=== PATIENT | female | born 1940 | race Caucasian/White ===

== ENCOUNTER 2024-09-22 09:48 | Outpatient (CLI) | payer MEDICARE, MEDICAID ==
--- NOTE | 2024-09-22 11:04 | RADIOLOGY REPORT ---
INDICATION: HX KIDNEY STONES, RECURRENT UTI TECHNIQUE: Multiple real-time sonographic images of the kidneys and bladder were obtained. COMPARISON: None FINDINGS: RIGHT KIDNEY: Measures 11 cm. Normal echogenicity. Mildly dilated renal pelvis. Renal stone measurin g 2.3 cm. Cyst measuring 2.6 cm. Mild hydronephrosis. LEFT KIDNEY: Measures 10.5 cm. Normal in echogenicity. No mass. No urinary stones. No hydronephrosi s. Exophytic cysts measuring 4.7 cm. BLADDER: Postvoid residual of 122 ML. IMPRESSION: 1. Mild hydronephrosis of the right kidney. 2.3 cm renal stone within the right kidney. 2. Urinary retention with postvoid volume of 122 mL.
== END 2024-09-22 23:59 | disposition home or self-care (01) ==
LOC: US 09:48
PROVIDERS: ATTEND Family Medicine
DX: N28.1 Cyst of kidney, acquired (principal); N13.2 Hydronephrosis with renal and ureteral calculous obstruction; N28.89 Other specified disorders of kidney and ureter; R33.9 Retention of urine, unspecified; Z87.442 Personal history of urinary calculi
CPT/HCPCS: 76770

== ENCOUNTER 2024-11-13 16:23 | Inpatient (IN) | payer MEDICARE, MEDICAID ==
[~2024-11-13] VITALS: Ht 152.4 cm; Wt 50.0 kg
[~2024-11-13 16:23] MED LIST: FAMO40TA58 PO; MELA3TAB39 PO; PRED10DR7
[2024-11-13 17:15] LABS: LEUKOCYTE ESTERASE ,URINE SMALL (Neg); NITRITES, URINE NEGATIVE (Neg); OCCULT BLOOD,URINE MODERATE (Neg)
[2024-11-13 17:24] LABS: UA COLLECTION TYPE CLN CATCH MIDSTREAM
[2024-11-13 17:25] LABS: MUCUS STRANDS NONE SEEN /LPF (Neg); SQUAMOUS EPITHELIAL CELL,UR NONE SEEN /LPF (FEW)
--- NOTE | 2024-11-13 17:31 | Physician Documentation ---
History of Present Illness ~ Chief Complaint: Sore Throat Stated Complaint: THROAT PAIN Time Seen by MD: 16:58 HPI The patient is an 84-year-old female accompanied by her daughter that presents to the emergency department today for evaluation of sore throat x2 days. Lorie reece's daughter reports that the patient was just discharged from an inpatient admission 2 days ago last night was her 1st night home. Patient's daughter reports that the patient was up pacing the halls most of the night complaining complaining that her throat hurts, confused statements, and that she did not think there was any need to get treatment for her sore throat and that she did not want to continue on". Patient's daughter reports that her mother said the same thing in the lobby while waiting to be seen today. Patient's daughter feels like her mother may have early onset dementia and is concerned about her mental state in addition to her sore throat at this time. No fevers nausea vomiting or diarrhea reported at this time. Medication Reconciliation Allergies: Coded Allergies: hydrocodone (Verified Allergy, Unknown, 10/27/24) Scheduled Famotidine (Famotidine), 1 TAB PO DAILY, (Reported) Melatonin (Melatonin), 6 MG PO HS Prednisolone Sod Phosphate (Prednisolone Sodium Phosphate), 1 DROP DAILY, (Reported) Past Medical History Patient History: Patient reports no known family medical history. Review of Systems ROS As stated above in the HPI, otherwise all systems are reviewed and negative. Physical Exam Vital Signs: Temperature: 98.3, Source: Oral, Heart Rate: 87, Respiratory Rate: 16, BP: 168/84, Pulse Oximetry: 96, Weight: 50.050 Progress Results/Orders Results/Orders Orders - BARBRA COTTRELL Cult Throat + R/O Beta Strep (11/13/24 17:56) Cbc/Diff (11/13/24 18:38) Completed Orders - BARBRA COTTRELL CMP (11/13/24 17:26) Strep A Rapid (11/13/24 17:26) Vital Signs 11/13/24 16:29 Temp 98.3 Pulse 87 Resp 16 B/P (MAP) 168/84 Pulse Ox 96 Laboratory Tests Test 11/13/24 16:55 11/13/24 17:35 11/13/24 17:36 Urine Specimen Description Cln catch midstream Urine Color Yellow Urine Clarity Clear Urine pH 6.0 Urine Specific [place] <=1.005 Urine Protein Negative Urine Glucose (UA) Negative Urine Ketones Negative Urine Occult Blood Moderate H Urine Nitrite Negative Urine Bilirubin Negative Urine Urobilinogen 0.2 Urine Leukocyte Esterase Small H Urine RBC 0-2 Urine WBC 5-10 H Urine Squamous Epithelial Cells None seen Urine Bacteria None seen Urine Mucus None seen Urine Culture Indicated Indicated Volume Urine Centrifuged 10 ml Urine Comment Group A Streptococcus Rapid Negative Sodium Level 140 Potassium Level 4.1 Chloride Level 107 Carbon Dioxide Level 26.5 Anion Gap 7 L Blood Urea Nitrogen 15 Creatinine 0.57 Estimated GFR/1.73 m2 > 90 BUN/Creatinine Ratio 26.3 H Glucose Level 95 Calcium Level 9.6 Total Bilirubin 0.5 Aspartate Amino Transf (AST/SGOT) 14 Alanine Aminotransferase (ALT/SGPT) 20 Alkaline Phosphatase 116 Total Protein 6.6 Albumin 3.4 Globulin 3.2 Albumin/Globulin Ratio 1.1 Chemistry Comments Microbiology Date/Time Source Procedure Growth Status 11/13/24 17:25 Urine Clean Catch Midstream Urine Culture - Preliminary Culture received. Resulted Medical Decision Making Findings This patient presents with symptoms consistent with acute uncomplicated cystitis. No systemic symptoms. Not septic. Well appearing. Low suspicion for ac seb pyelonephritis given lack of fever, CVAT, or systemic features. Low suspicion for kidney stone or infected stone. Patient has had persistent UTIs over the last several months despite treatment. Patient has increased confusion with each UTI. We will consult hospitalist and consider admission for metabolic encephalopathy and further evaluation of persistent UTIs. Throat Diff Dx: Considerations: Include: AIDS, Epiglottitis, Esophageal candidiasis, Hand foot mouth disease, Herpangina, Herpetic stomatitis, Herpes simplex, Infection mononucleosis, Immunodeficiency, Patrice's angina, Peritonsillar abscess, Peritonsillar cellulitis, Pharyngitis-diphtheria, Pharyngitis-strepococcal, Pharyngitis-viral, Thrush, URI, Other Departure Disposition: 30 STILL A PATIENT Admitted to Inpatient Unit: to hospitalist Admission Level of Care: Med/Surg Impression: Primary Impression: Irritation of pharynx Additional Impressions: Acute urinary tract infection Urinary tract infection Confused Insomnia Additional Instructions: This patient presents with symptoms consistent with acute uncomplicated cystitis. No systemic symptoms. Not septic. Well appearing. Low suspicion for acute pyelonephritis given lack of fever, CVAT, or systemic features. Low suspicion for kidney stone or infected stone. Patient has had persistent UTIs over the last several months despite treatment. Patient has increased confusion with each UTI. We will consult hospitalist and consider admission for metabolic encephalopathy and further evaluation of persistent UTIs. Referrals: NO PRIMARY CARE PROVIDER (PCP) Education Educated: Patient Educated regarding: diagnosis, treatment, need for follow up BARBRA COTTRELL Nov 13, 2024 17:31
[2024-11-13 17:56] LABS: STREP A SCREEN NEGATIVE (Neg)
[2024-11-13 18:04] LABS: CREATININE 0.57 MG/DL (0.40-0.90); TOTAL CARBON DIOXIDE 26.5 MMOL/L (24-32); eCRCL 52 ML/MIN; eGFR > 90 ML/MIN
[2024-11-13 19:00] LABS: MEAN PLATELET VOLUME 7.8 FL (7.4-10.4); RED CELL DISTRIBUTION WIDTH 15.0 % (11.5-14.5)
[2024-11-13] MEDS ORDERED: CefTRIAXone 250MG inj IV ONE (19:45)
[2024-11-13] MEDS: normal saline 1000ml 1,000 ML IV SCH (19:50)
[2024-11-13] MEDS ORDERED: HYDROcodone/acetaminophen 5mg/325mg tablet PO PRN (19:50)
[2024-11-13] MEDS ORDERED: potassium Cl 20 mEq SR tablet PO PRN ×2 (19:50)
[2024-11-13] MEDS ORDERED: magnesium Cl slow-release 64mg tablet PO PRN (19:50)
[2024-11-13] MEDS ORDERED: magnesium sulf-water 4G/100mL 100 ML IV PRN (19:50)
[2024-11-13] MEDS ORDERED: ondansetron/PF 4mg/2ml inj IV PRN (19:50)
[2024-11-13] MEDS ORDERED: HYDROcodone/acetaminophen 10/325mg tab PO PRN (19:50)
[2024-11-13] MEDS ORDERED: potassium Cl 40MEQ/1/2NS 520ml 520 ML IV PRN (19:50)
[2024-11-13] MEDS ORDERED: mag hydrox/Alum hydrox/simeth 30ml oral suspension PO PRN (19:50)
[2024-11-13] MEDS ORDERED: magnesium sulf-water 2g/50mL 50 ML IV PRN (19:50)
[2024-11-13] MEDS ORDERED: CefTRIAXone 1000mg IM Kit (w/lidocaine diluent) IM ONE (19:50)
[2024-11-13] MEDS: docusate sod 100mg capsule PO SCH (20:00)
[2024-11-13] MEDS: K and/or MAG REPLACEMENT MC SCH (20:00)
[2024-11-13] MEDS: normal saline 1000ml 1,000 ML IV ONE (20:32)
--- NOTE | 2024-11-13 20:33 | HISTORY AND PHYSICAL-Residence ---
History & Physical Providers to CC Resident Creating Document: KIRSTIE MURILLO, SONIYA ~ History of Present Illness Reason for Admit\\Complaint: UTI, metabolic encephalopathy History of Present Illness This is an 84-year-old female with past medical history of recurrent UTI and dementia since two years, corneal transplant, uterine cancer, bilateral total knee replacement, left shoulder replacement was brought to the ER by her daughter in view of increasing confusion and disorientation. The patient complains about dry cough, irritation in the throat since two days. No complains of fever, burning micturition, increased urgency or frequency, abdominal pain, back pain. She was here two weeks ago for UTI and was treated with ceftriaxone 1 g IV for 4 days and was discharged to go to a rehab. She was discharged from the rehab to go home two days ago. When I spoke to her she is oriented to time place and person, she seems fearful of being left alone in the room. Her daughter mentioned that her mother stays awake throughout the night, sometimes talks about things which are not there are not happening currently. Allergies: Coded Allergies: hydrocodone (Verified Adverse Reaction, Unknown, NAUSEA, 11/13/24) Home Medications Home Medications Active Melatonin 3 Mg Tablet 6 Mg PO HS 30 Days Reported Prednisolone Sodium Phosphate (Prednisolone Sod Phosphate) 1 % Drops 1 Drop DAILY One drop in each eye once a day per Rx instuctions on external med reconcilliation. Famotidine 40 Mg Tablet 1 Tab PO DAILY Past Medical History Past Medical History Recurrent UTI since two years Dementia since two years treated outpatient by a neurologist Past Surgical History Surgical History Comment Five corneal transplant Uterine cancer status post chemotherapy Bilateral total knee replacement Left shoulder replacement Family History Family History: Patient reports no known family medical history. Past Social History Social History Comment The patient daughter mentioned that the patient was taking "diet pills" which was most likely "speed". And after she got out of the pills, during her rehab she had 2-3 shock therapy. Smoking: Quit greater than 1 year (Smoked five cigarettes a week in her 20s) Alcohol Use: Sober (Drank 1-2 drinks a week in her 20s) Drug Use: None Lives with: Family (Daughter. But daughter is having difficulty taking care of her.) Lives In: Home Occupation: retired Domestic Violence: Neg ROS Constitutional: Reports: weakness Eyes: Reports: blurred vision ENT: Reports: no symptoms reported Respiratory: Reports: no symptoms reported, cough Cardiovascular: Reports: no symptoms reported Gastrointestinal: Reports: no symptoms reported Genitourinary: Reports: no symptoms reported Female Genitalia: Reports: no reported symptoms Neurological: Reports: no symptoms reported Musculoskeletal: Reports: no symptoms reported Integumentary: Reports: no symptoms reported Allergic/Immunologic: Reports: no symptoms reported Hematologic/Lymphatic: Reports: no symptoms reported Endocrine: Reports: no symptoms reported Psychiatric: Reports: no symptoms reported Unable to obtain: dementia Exam Vitals: Vital Signs Date Time Temp Pulse Resp B/P (MAP) Pulse Ox O2 Delivery O2 Flow Rate FiO2 11/13/24 16:29 98.3 87 16 168/84 96 General: General: Well alert, well oriented, confused, not agitated, not in acute distress, well cooperated during the physical. HEENT: Conjunctive are pink, sclerae clear, no icterus, pupil is equal in both sides, reactive to light, no ear discharge, no pharyngeal erythema or an edema. Neck: Supple, no JVD, no lymphadenopathy and thyromegaly. Chest: Equal air entry on both lungs, no added sounds, no wheeze. Cardiovascular: S1-S2 regular sinus rhythm and, regular rate, no gallops, no rubs, no murmurs Abdomen: No visible peristalsis, Bowel sounds present on auscultation, soft, nontender, no guarding, no rigidity Extremities: No obvious deformities, no pitting edema bilaterally, capillary refill intact, peripheral pulsations are intact on both sides Central Nervous System: No focal neurological deficits, no motor or sensory weakness in all 4 extremities, could move all 4 extremities, 2+ deep tendon reflexes, negative Babinski. Musculoskeletal: No joint swelling, deformities, inflammations, and no scoliosis and back tenderness Skin: Warm and dry. Diagnostic Data Last Recorded Lab Results: 11/13/24 1736 11/13/24 1736 Counseling Services Smoking & Tobacco Cessation: N/A Advance Care Planning Advanced Care plannin - 30 Minutes (DNR) Additional Plan Assessment: This is an 84-year-old female with past medical history of recurrent UTI and dementia since two years was brought to the ER by her daughter in view of increasing confusion and disorientation. Plan: Acute Metabolic encephalopathy Recurrent UTI No symptoms of UTI, intermittent confusion, fearfulness, agitation. Patient does not meet the SIRS criteria Vitals: Blood pressure on arrival 168/84, pulse 87. Not a known case of hypertension. Urinalysis shows 5-10 WBCs, leukocyte esterase positive, moderate occult blood, no bacteria seen. WBC 9.9 creatinine 0.57 Plan: Urine culture sent Hydration with 50 mL/hour IV fluids Started antibiotic levofloxacin 750 mg IV daily to cover Pseudomonas Watch for QT prolongation. Ordered ammonia, TSH, lactic acid, ESR, prolactin. Fall precautions in place. Cough, sore throat most likely due to pharyngitis Throat does not look inflamed on examination, no follicles. chest x-ray. Rapid strep test negative Dementia of unknown etiology Not on any medication Treated outpatient with a neurologist Code status: DNR DVT prophylaxis: SCDs Analgesia/sedation: Morphine p.r.n. Line/tube: PIV GI prophylaxis: None Nutrition: Regular diet PT: Ordered. Prognosis: Guarded Disposition: Admit to ortho, work with pillowcase cutter for discharge plan and placement. I strongly recommend psychiatric evaluation once the patient is stable. Kirstie Murillo MD PGY1, Internal Medicine [facility] I saw and evaluated the patient with the resident team and agree with the assessment and plan as documented. Date of Service: Nov 13, 2024 Billing Provider: KENIA KRISHNAMURTHY MD, SHIVANI, [facility] Nov 13, 2024 20:33 KENIA KRISHNAMURTHY MD Nov 14, 2024 10:00
[2024-11-13] MEDS: CefTRIAXone/D5W-Rocephin 1gm 50 ML IV ONE (20:40)
--- NOTE | 2024-11-13 21:04 | RADIOLOGY REPORT ---
CHEST RADIOGRAPH Indication: r/oo additional source of infection Technique: Frontal and lateral view of the chest was obtained Comparison: None FINDINGS: Lines and Tubes: None Lungs: No evidence of pulmonary infiltrates or edema. Pleura: No pleural effusion or pneumothorax. Cardiomediastinal contours: Unremarkable Bones: No acute abnormality demonstrated. Thoracic spondylosis. Degenerative changes in right glenohu meral joint. Prior left shoulder arthroplasty. IMPRESSION: No evidence of pneumonia or other acute abnormality.
[2024-11-13 21:29] LABS: CHOL/HDL RATIO 3.3 (0.00-4.99); LDL CHOLESTEROL 104 MG/DL (50-100)
[2024-11-14] VITALS (7 sets, daily range): BP systolic 136–160; BP diastolic 67–100; PULSE 92–110; RESP 16–20; TEMP 97.4–98.4; O2SAT 94–97
[2024-11-14 02:42] LABS: MEAN PLATELET VOLUME 7.2 FL (7.4-10.4); RED CELL DISTRIBUTION WIDTH 15.0 % (11.5-14.5)
[2024-11-14 02:48] LABS: CREATININE 0.53 MG/DL (0.40-0.90); TOTAL CARBON DIOXIDE 26.8 MMOL/L (24-32); eCRCL 56 ML/MIN; eGFR > 90 ML/MIN
[2024-11-14] MEDS ORDERED: CefTRIAXone/D5W-Rocephin 1gm 50 ML IV SCH (08:00)
[2024-11-14] MEDS ORDERED: cefepime 1GM in D5W 50mL 50 ML IV SCH (08:00)
[2024-11-14] MEDS: levoFLOXACIN-Levaquin 750MG/D5 150 ML IV SCH (09:08)
[2024-11-14] MEDS: prednisoLONE acetate 1% ophth susp 5ml EACHEYE SCH (15:42)
[2024-11-14] MEDS: polyvinyl alcohol eye drops 15ML BOTTLE EACHEYE PRN (17:19)
--- NOTE | 2024-11-14 17:33 | PROGRESS NOTE- Residence ---
Progress Note - Resident Providers to CC Resident Creating Document: LYSSA ROBERT RES ~ Antibiotic Timeout Antibiotic Ordered?: Yes Subjective Patient was seen and examined bedside. She looks less confused compared to yesterday. She has been anxious since morning. She stated that she did not have any urinary symptoms like urgency, frequency or burning micturition, hematuria. She denies back pain,fever and chills. We spoke with the patient's daughter and she stated that she is no longer able to care for her mother and wishes for placement in a dementia care facility to support her cognitive and behavioral needs. She also noted financial constraints and requested assistance from our embedded case manager for placement options. Objective Vital Signs Date Time Temp Pulse Resp B/P (MAP) Pulse Ox O2 Delivery O2 Flow Rate FiO2 11/14/24 16:59 136/77 (96) 11/14/24 11:00 98.4 108 16 97 Room Air 11/14/24 06:38 0 Result Diagram: 11/14/2421711/14/24217 General: Well alert, well oriented, slightly confused, not agitated, not in acute distress. HEENT: Conjunctive are pink, sclerae clear, no icterus, pupil is equal in both sides, reactive to light, no ear discharge, no pharyngeal erythema or an edema. Neck: Supple, no JVD, no lymphadenopathy and thyromegaly. Chest: Equal air entry on both lungs, no added sounds, no wheeze. Cardiovascular: S1-S2 regular sinus rhythm and, regular rate, no gallops, no rubs, no murmurs Abdomen: No visible peristalsis, Bowel sounds present on auscultation, soft, nontender, no guarding, no rigidity Extremities: No obvious deformities, no pitting edema bilaterally, capillary refill intact, peripheral pulsations are intact on both sides Central Nervous System: No focal neurological deficits, no motor or sensory weakness in all 4 extremities, could move all 4 extremities, 2+ deep tendon reflexes, negative Babinski. Musculoskeletal: No joint swelling, deformities, inflammations, and no scoliosis and back tenderness Skin: Warm and dry. Assessment Assessment 84-year-old female with past medical history of recurrent UTI and dementia since 20 years was brought to the ER by her daughter with complaints of increasing confusion and disorientation, with no symptoms of urinary tract infection. Her urinalysis is positive but urine cultures showed no growth. Her baseline cognitive status is unknown, making it difficult to evaluate her recent changes in cognition and behavioral status. Plan Plan History of Recurrent UTI Rule out Acute Metabolic encephalopathy No symptoms of UTI, intermittent confusion, fearfulness, agitation. Patient does not meet the SIRS criteria Vitals: Blood pressure on arrival 168/84, pulse 87. Not a known case of hypertension. Urinalysis shows 5-10 WBCs, leukocyte esterase positive, moderate occult blood, no bacteria seen. WBC 9.9 creatinine 0.57 Plan: Urine culture sent Hydration with 50 mL/hour IV fluids Started antibiotic levofloxacin 750 mg IV daily to cover Pseudomonas Watch for QT prolongation. Ordered ammonia, TSH, lactic acid, ESR, procalcitonin. Fall precautions in place. 11/14/24 Rule out UTI Rule out metabolic encephalopathy WBC, Procalcitonin, lactic acid and ESR - normal Urine cultures show no growth SIRS criteria not met No electrolyte abnormalities Ammonia < 10 Her confusion might be a component of her declining cognitive status, rule out metabolic encephalopathy Plan: Continue NS at 50 mL/hr Continue levofloxacin 750 mg IV daily Watch for QT prolongation Fall precautions in place Cough, sore throat most likely due to pharyngitis Throat does not look inflamed on examination, no follicles. Rapid strep test negative Chest x-ray shows no abnormality Dementia of unknown etiology Not on any medication follow up outpatient with a neurologist 11/14/24 Patient was anxious Started Zyprexa 2.5 mg p.o. b.i.d. p.r.n. Code status: Full DVT prophylaxis: SCDs until fully ambulatory Pain management: Morphine Diet/nutrition: Regular diet Prognosis: Guarded Disposition: Continue medical management. We are monitoring her cognitive and behavioral status. We are discussing options for placement, PT eval and DC plan. Resident MD attestation: The patient note has been reviewed and supervised by senior residents PGY-2/ PGY-3. Patient was seen, examined and discussed with attending physician. Lyssa Robert MD Internal Medicine resident, PGY-1 [facility] Date of Service: Nov 14, 2024 Billing Provider: ANKUSH DUMONT MD Common Visit Codes: [id number] INP/OBS CARE(HIGH) LYSSA ROBERT, RES Nov 14, 2024 17:33 ANKUSH DUMONT MD Nov 15, 2024 06:56
[2024-11-15 06:00] VITALS: BP 135/84; PULSE 82; RESP 16; TEMP 98.1; O2SAT 95
[2024-11-15 06:42] LABS: MEAN PLATELET VOLUME 7.7 FL (7.4-10.4); RED CELL DISTRIBUTION WIDTH 15.1 % (11.5-14.5)
[2024-11-15 06:58] LABS: CREATININE 0.50 MG/DL (0.40-0.90); TOTAL CARBON DIOXIDE 26.8 MMOL/L (24-32); eCRCL 59 ML/MIN; eGFR > 90 ML/MIN
[2024-11-15 07:17] VITALS: RESP 16; O2SAT 95
[2024-11-15 10:00] VITALS: BP 140/75; PULSE 86; RESP 18; TEMP 98.1; O2SAT 94
[2024-11-15] MEDS: HALLS - SOOTHE MENTHOL 1.8 MG cough drop LOZENGE MM PRN (11:14)
--- NOTE | 2024-11-15 16:37 | PROGRESS NOTE- Residence ---
Progress Note - Resident Providers to CC Resident Creating Document: OLGA SOTO RES ~ Antibiotic Timeout Antibiotic Ordered?: Yes Subjective Patient was walking with a PT this morning but remains unchanged from her cognitive decline status by showing only anxiety and restless behavior although patient was prescribed with olanzapine yesterday. Objective Vital Signs Date Time Temp Pulse Resp B/P (MAP) Pulse Ox O2 Delivery O2 Flow Rate FiO2 11/15/24 10:00 98.1 86 18 140/75 (96) 94 11/15/24 07:17 Room Air 11/14/24 20:00 0.0 Result Diagram: 11/15/24 0554 11/15/24 0554 Vitals were stable at the moment with temp 98.1 F, AL 82/minute, RR 16/minute, BP 135/84 mm Hg, pulse oximetry 95% on room air. On exam, General: Anxious and restless, alert, oriented, slightly confused, not agitated, not in acute distress. HEENT: Conjunctive are pink, sclerae clear, no icterus, pupil is equal in both sides, reactive to light, no ear discharge, no pharyngeal erythema or an edema. Neck: Supple, no JVD, no lymphadenopathy and thyromegaly. Chest: Equal air entry on both lungs, no added sounds, no wheeze. Cardiovascular: S1-S2 regular sinus rhythm and, regular rate, no gallops, no rubs, no murmurs Abdomen: No visible peristalsis, Bowel sounds present on auscultation, soft, nontender, no guarding, no rigidity Extremities: No obvious deformities, no pitting edema bilaterally, capillary refill intact, peripheral pulsations are intact on both sides Central Nervous System: No focal neurological deficits, no motor or sensory weakness in all 4 extremities, could move all 4 extremities, 2+ deep tendon reflexes, negative Babinski. Musculoskeletal: No joint swelling, deformities, inflammations, and no scoliosis and back tenderness Skin: Warm and dry. Assessment Assessment An 84-year-old female with past medical history of recurrent UTI and dementia since 20 years was brought to the ER by her daughter with complaints of increasing confusion and disorientation, with no symptoms of urinary tract infection. Her urinalysis is positive but urine cultures showed no growth. Her baseline cognitive status is unknown, making it difficult to evaluate her recent changes in cognition and behavioral status. Plan Plan # History of Recurrent UTI # Rule out Acute Metabolic encephalopathy No symptoms of UTI, intermittent confusion, fearfulness, agitation. Patient does not meet the SIRS criteria Vitals: Blood pressure on arrival 168/84, pulse 87. Not a known case of hypertension. Urinalysis shows 5-10 WBCs, leukocyte esterase positive, moderate occult blood, no bacteria seen. WBC 9.9 creatinine 0.57 Plan: Urine culture sent Hydration with 50 mL/hour IV fluids Started antibiotic levofloxacin 750 mg IV daily to cover Pseudomonas Watch for QT prolongation. Ordered ammonia, TSH, lactic acid, ESR, procalcitonin. Fall precautions in place. 11/14/24 Rule out UTI Rule out metabolic encephalopathy WBC, Procalcitonin, lactic acid and ESR - normal Urine cultures show no growth SIRS criteria not met No electrolyte abnormalities Ammonia < 10 Her confusion might be a component of her declining cognitive status, rule out metabolic encephalopathy Plan: Continue NS at 50 mL/hr Continue levofloxacin 750 mg IV daily Watch for QT prolongation Fall precautions in place 11/15/2024: Schedule p.o. olanzapine 2.5 mg b.i.d. -given one time dose of p.o. clonazepam 0.5 mg -we will consider more/long-acting anxiolytic for her anxiety from cognitive decline function -continue levofloxacin until blood and urine C&S results came out for clear # Cough, sore throat most likely due to pharyngitis Throat does not look inflamed on examination, no follicles. Rapid strep test negative Chest x-ray shows no abnormality 11/15/2024: Menthol mg q.2 hours PRN -throat culture final results showed normal oral jacob # Declining Cognitive dysnfucntion from Dementia of unknown etiology Not on any medication follow up outpatient with a neurologist 11/14/24 Patient was anxious Started Zyprexa 2.5 mg p.o. b.i.d. p.r.n. 11/15/2024: As in above, recommended to follow up with the Neurology for neuro trophic agents for her dementia status including memantine etc Code status: Full DVT prophylaxis: SCDs until fully ambulatory Pain management: Morphine Diet/nutrition: Regular diet Prognosis: Guarded Disposition: Continue medical management. We are monitoring her cognitive and behavioral status. We are discussing options for placement, PT eval and DC plan. Resident attestation: Patient was seen, examined and discussed with attending physician Dr Colten SOTO MD Internal Medicine Resident, PGY3 [facility] Date of Service: Nov 15, 2024 Billing Provider: ANKUSH DUMONT MD Common Visit Codes: [id number] INP/OBS CARE(HIGH) OLGA SOTO, RES Nov 15, 2024 16:37 ANKUSH DUMONT MD Nov 16, 2024 07:39
[2024-11-15 18:00] VITALS: BP 131/66; PULSE 86; RESP 17; TEMP 97.9; O2SAT 94
[2024-11-15 20:10] VITALS: RESP 16
[2024-11-15 22:00] VITALS: BP 129/54; PULSE 74; RESP 16; TEMP 97.6; O2SAT 93
[2024-11-16 04:55] LABS: MEAN PLATELET VOLUME 7.3 FL (7.4-10.4); RED CELL DISTRIBUTION WIDTH 15.4 % (11.5-14.5)
[2024-11-16 05:19] LABS: CREATININE 0.54 MG/DL (0.40-0.90); TOTAL CARBON DIOXIDE 25.8 MMOL/L (24-32); eCRCL 55 ML/MIN; eGFR > 90 ML/MIN
[2024-11-16 06:00] VITALS: BP_SYST 114; BP_SYST 152; BP_DIAS 68; BP_DIAS 72; PULSE 67; PULSE 73; RESP 16; RESP 20; TEMP 97.7; TEMP 98.3; O2SAT 90; O2SAT 97
[2024-11-16 08:32] VITALS: RESP 16; O2SAT 97
[2024-11-16 11:00] VITALS: BP 129/82; PULSE 125; RESP 17; TEMP 97.8; O2SAT 95
[2024-11-16 18:00] VITALS: BP 133/80; PULSE 122; RESP 14; TEMP 98; O2SAT 97
[2024-11-16] MEDS: magnesium hydroxide 30ml (MOM) UD suspension PO PRN (19:38)
[2024-11-16 19:45] VITALS: RESP 18
--- NOTE | 2024-11-16 19:56 | PROGRESS NOTE- Residence ---
Progress Note - Resident Providers to CC Resident Creating Document: LYSSA ROBERT RES ~ Antibiotic Timeout Antibiotic Ordered?: Yes Subjective Patient seen and examined bedside, she remains unchanged from her cognitive decline status by showing only anxiety and restless behavior although patient was prescribed with olanzapine yesterday. Objective Vital Signs Date Time Temp Pulse Resp B/P (MAP) Pulse Ox O2 Delivery O2 Flow Rate FiO2 11/16/24 11:00 97.8 125 17 129/82 (98) 95 Room Air 11/15/24 20:10 0.0 Result Diagram: 11/16/241 11/16/24440 General: Well alert, well oriented, slightly confused, not agitated, not in acute distress. HEENT: Conjunctive are pink, sclerae clear, no icterus, pupil is equal in both sides, reactive to light, no ear discharge, no pharyngeal erythema or an edema. Neck: Supple, no JVD, no lymphadenopathy and thyromegaly. Chest: Equal air entry on both lungs, no added sounds, no wheeze. Cardiovascular: S1-S2 regular sinus rhythm and, regular rate, no gallops, no rubs, no murmurs Abdomen: No visible peristalsis, Bowel sounds present on auscultation, soft, nontender, no guarding, no rigidity Extremities: No obvious deformities, no pitting edema bilaterally, capillary refill intact, peripheral pulsations are intact on both sides Central Nervous System: No focal neurological deficits, no motor or sensory weakness in all 4 extremities, could move all 4 extremities, 2+ deep tendon reflexes, negative Babinski. Musculoskeletal: No joint swelling, deformities, inflammations, and no scoliosis and back tenderness Skin: Warm and dry. Assessment Assessment An 84-year-old female with past medical history of recurrent UTI and dementia since 20 years was brought to the ER by her daughter with complaints of increasing confusion and disorientation, with no symptoms of urinary tract infection. Her urinalysis is positive but urine cultures showed no growth. Her baseline cognitive status is unknown, making it difficult to evaluate her recent changes in cognition and behavioral status. Plan Plan # History of Recurrent UTI # Rule out Acute Metabolic encephalopathy No symptoms of UTI, intermittent confusion, fearfulness, agitation. Patient does not meet the SIRS criteria Vitals: Blood pressure on arrival 168/84, pulse 87. Not a known case of hypertension. Urinalysis shows 5-10 WBCs, leukocyte esterase positive, moderate occult blood, no bacteria seen. WBC 9.9 creatinine 0.57 Plan: Urine culture sent Hydration with 50 mL/hour IV fluids Started antibiotic levofloxacin 750 mg IV daily to cover Pseudomonas Watch for QT prolongation. Ordered ammonia, TSH, lactic acid, ESR, procalcitonin. Fall precautions in place. 11/14/24 Rule out UTI Rule out metabolic encephalopathy WBC, Procalcitonin, lactic acid and ESR - normal Urine cultures show no growth SIRS criteria not met No electrolyte abnormalities Ammonia < 10 Her confusion might be a component of her declining cognitive status, rule out metabolic encephalopathy Plan: Continue NS at 50 mL/hr Continue levofloxacin 750 mg IV daily Watch for QT prolongation Fall precautions in place 11/15/2024: Schedule p.o. olanzapine 2.5 mg b.i.d. -given one time dose of p.o. clonazepam 0.5 mg -we will consider more/long-acting anxiolytic for her anxiety from cognitive decline function -continue levofloxacin until blood and urine C&S results came out for clear 11/16/2024: Held IV levofloxacin as urine cultures showed no growth. Started on amitriptyline 10 mg at bedtime, as her confusion could be a component of improper sleep. Continue clonazepam 0.5 mg daily p.r.n. Held olanzapine 2.5 mg b.i.d. Held IV fluids, patient tolerating oral diet well. # Cough, sore throat most likely due to pharyngitis Throat does not look inflamed on examination, no follicles. Rapid strep test negative Chest x-ray shows no abnormality 11/15/2024: Menthol mg q.2 hours PRN -throat culture final results showed normal oral jacob # Declining Cognitive dysnfucntion from Dementia of unknown etiology Not on any medication follow up outpatient with a neurologist 11/14/24 Patient was anxious Started Zyprexa 2.5 mg p.o. b.i.d. p.r.n. 11/15/2024: As in above, recommended to follow up with the Neurology for neuro trophic agents for her dementia status including memantine etc Code status: Full DVT prophylaxis: SCDs until fully ambulatory Pain management: Morphine Diet/nutrition: Regular diet Prognosis: Guarded Disposition: Continue medical management. We are monitoring her cognitive and behavioral status. We are discussing options for placement, PT eval and DC plan. Resident MD attestation: The patient note has been reviewed and supervised by senior residents PGY-2/ PGY-3. Patient was seen, examined and discussed with attending physician Dr Colten Robert MD Internal Medicine resident, PGY-1 [facility] Date of Service: Nov 16, 2024 Billing Provider: ANKUSH DUMONT MD Common Visit Codes: [id number] INP/OBS CARE(HIGH) LYSSA ROBERT, RES Nov 16, 2024 19:56 ANKUSH DUMONT MD Nov 18, 2024 07:07
[2024-11-17 05:05] LABS: MEAN PLATELET VOLUME 7.3 FL (7.4-10.4); RED CELL DISTRIBUTION WIDTH 15.1 % (11.5-14.5)
[2024-11-17 05:35] LABS: CREATININE 0.51 MG/DL (0.40-0.90); TOTAL CARBON DIOXIDE 29.8 MMOL/L (24-32); eCRCL 58 ML/MIN; eGFR > 90 ML/MIN
[2024-11-17 06:00] VITALS: BP 144/57; PULSE 82; RESP 16; TEMP 97.4; O2SAT 94
[2024-11-17 10:00] VITALS: BP 119/71; PULSE 116; RESP 17; TEMP 97.9; O2SAT 96
--- NOTE | 2024-11-17 15:34 | PROGRESS NOTE- Residence ---
Progress Note - Resident Providers to CC Resident Creating Document: LYSSA ROBERT RES ~ Antibiotic Timeout Antibiotic Ordered?: Yes Subjective Patient seen and examined bedside, she remains unchanged from her cognitive decline status by showing only anxiety and restless behavior. She stated that she could not get much sleep last night even though she was prescribed amitriptyline and clonazepam. She appears to have muscle twitching of her left cheek today, which was not noticed or reported before. No other acute complaints today. Objective Vital Signs Date Time Temp Pulse Resp B/P (MAP) Pulse Ox O2 Delivery O2 Flow Rate FiO2 11/17/24 10:00 97.9 116 17 119/71 (87) 96 Room Air 11/17/24 08:00 0.0 Result Diagram: 11/17/2443711/17/24437 General: Well alert, well oriented, slightly confused, not agitated, not in acute distress. HEENT: Conjunctive are pink, sclerae clear, no icterus, pupil is equal in both sides, reactive to light, no ear discharge, no pharyngeal erythema or an edema. Neck: Supple, no JVD, no lymphadenopathy and thyromegaly. Chest: Equal air entry on both lungs, no added sounds, no wheeze. Cardiovascular: S1-S2 regular sinus rhythm and, regular rate, no gallops, no rubs, no murmurs Abdomen: No visible peristalsis, Bowel sounds present on auscultation, soft, nontender, no guarding, no rigidity Extremities: No obvious deformities, no pitting edema bilaterally, capillary refill intact, peripheral pulsations are intact on both sides Central Nervous System: No focal neurological deficits, no motor or sensory weakness in all 4 extremities, could move all 4 extremities, 2+ deep tendon reflexes, negative Babinski. Musculoskeletal: Muscle twitching in her left cheek, No joint swelling, deformities, inflammations, and no scoliosis and back tenderness Skin: Warm and dry. Assessment Assessment An 84-year-old female with past medical history of recurrent UTI and dementia since 20 years was brought to the ER by her daughter with complaints of increasing confusion and disorientation, with no symptoms of urinary tract infection. Her urinalysis is positive but urine cultures showed no growth. Her baseline cognitive status is unknown, making it difficult to evaluate her recent changes in cognition and behavioral status. Plan Plan # History of Recurrent UTI # Confusion due to Acute Metabolic encephalopathy vs dementia No symptoms of UTI, intermittent confusion, fearfulness, agitation. Patient does not meet the SIRS criteria Vitals: Blood pressure on arrival 168/84, pulse 87. Not a known case of hypertension. Urinalysis shows 5-10 WBCs, leukocyte esterase positive, moderate occult blood, no bacteria seen. WBC 9.9 creatinine 0.57 Plan: Urine culture sent Hydration with 50 mL/hour IV fluids Started antibiotic levofloxacin 750 mg IV daily to cover Pseudomonas Watch for QT prolongation. Ordered ammonia, TSH, lactic acid, ESR, procalcitonin. Fall precautions in place. 11/14/24 Possible UTI Possible metabolic encephalopathy WBC, Procalcitonin, lactic acid and ESR - normal Urine cultures show no growth SIRS criteria not met No electrolyte abnormalities Ammonia < 10 Her confusion might be a component of her declining cognitive status or acute metabolic encephalopathy Plan: Continue NS at 50 mL/hr Continue levofloxacin 750 mg IV daily Watch for QT prolongation Fall precautions in place 11/15/2024: Schedule p.o. olanzapine 2.5 mg b.i.d. -given one time dose of p.o. clonazepam 0.5 mg -we will consider more/long-acting anxiolytic for her anxiety from cognitive decline function -continue levofloxacin until blood and urine C&S results came out for clear 11/16/2024: Held IV levofloxacin as urine cultures showed no growth. Started on amitriptyline 10 mg at bedtime, as her confusion could be a component of improper sleep. Continue clonazepam 0.5 mg daily p.r.n. Held olanzapine 2.5 mg b.i.d. Held IV fluids, patient tolerating oral diet well. 11/17/2024: Held amitriptyline 10 mg in view of her muscle twitches in left cheek Started Seroquel 50 mg h.s. Continue clonazepam 0.5 mg p.r.n. # Cough, sore throat most likely due to pharyngitis Throat does not look inflamed on examination, no follicles. Rapid strep test negative Chest x-ray shows no abnormality 11/15/2024: Menthol mg q.2 hours PRN -throat culture final results showed normal oral jacob # Declining Cognitive dysnfucntion from Dementia of unknown etiology Not on any medication follow up outpatient with a neurologist Code status: Full DVT prophylaxis: SCDs until fully ambulatory Pain management: Morphine Diet/nutrition: Regular diet Prognosis: Guarded Disposition: Continue medical management. We are monitoring her cognitive and behavioral status. We are discussing options for placement, PT eval and DC plan. Resident MD attestation: The patient note has been reviewed and supervised by senior residents PGY-2/ PGY-3. Patient was seen, examined and discussed with attending physician Dr Colten Robert MD Internal Medicine resident, PGY-1 [facility] Date of Service: Nov 17, 2024 Billing Provider: ANKUSH DUMONT MD Common Visit Codes: [id number] INP/OBS CARE(HIGH) LYSSA ROBERT, RES Nov 17, 2024 15:34 ANKUSH DUMONT MD Nov 18, 2024 07:08
[2024-11-17 18:00] VITALS: BP 142/81; PULSE 88; RESP 18; TEMP 97.6; O2SAT 93
[2024-11-17 20:00] VITALS: RESP 18; O2SAT 93
[2024-11-17 22:00] VITALS: BP 118/71; PULSE 87; RESP 16; TEMP 97.7; O2SAT 97
[2024-11-18 05:00] VITALS: BP 118/53; PULSE 83; RESP 20; TEMP 97.9; O2SAT 94
[2024-11-18 05:20] LABS: MEAN PLATELET VOLUME 7.6 FL (7.4-10.4); RED CELL DISTRIBUTION WIDTH 15.3 % (11.5-14.5)
[2024-11-18 05:47] LABS: CREATININE 0.69 MG/DL (0.40-0.90); TOTAL CARBON DIOXIDE 27.7 MMOL/L (24-32); eCRCL 43 ML/MIN; eGFR 81 ML/MIN
[2024-11-18 09:33] VITALS: RESP 18; O2SAT 94
[2024-11-18 10:00] VITALS: BP 99/54; PULSE 98; RESP 16; TEMP 98; O2SAT 97
--- NOTE | 2024-11-18 10:56 | DISCHARGE SUMMARY-Residence ---
Discharge Summary Providers to CC Resident Creating Document: YESICASONIYA OMALLEY ~ Discharge Summary Admission Diagnosis: UTI, METABOLIC ENCEPHALOPATHY Hospital Course DATE OF ADMISSION: 11/13/24 DATE OF DISCHARGE: 11/18/24 Discharge Diagnosis\Comment: History of recurrent UTI Unable to exclude UTI Unable to exclude metabolic encephalopathy Cough, sore throat most likely due to pharyngitis Declining cognitive dysfunction from dementia of unknown etiology Operations\Procedures: None Consultants: None Complications: None Condition on DC: Stable for transfer Discharge Summary: HPI as per admitting physician: This is an 84-year-old female with past medical history of recurrent UTI and dementia since two years, corneal transplant, uterine cancer, bilateral total knee replacement, left shoulder replacement was brought to the ER by her daughter in view of increasing confusion and disorientation. The patient [place] about dry cough, irritation in the throat since two days. No complains of fever, burning micturition, increased urgency or frequency, abdominal pain, back pain. She was here two weeks ago for UTI and was treated with ceftriaxone 1 g IV for 4 days and was discharged to go to a rehab. She was discharged from the rehab to go home two days ago. When I spoke to her she is oriented to time place and person, she seems fearful of being left alone in the room. Her daughter mentioned that her mother stays awake throughout the night, sometimes talks about things which are not there are not happening currently. Hospital course: 84-year-old female was brought by her daughter to the ER with chief complaints of increased confusion and disorientation. She has a past medical history of UTI and dementia since 2 years. She has not been on any medications for her c ognitive status. Her urinalysis came back positive, she was started on IV levofloxacin. Her urine culture showed no growth and we held levofloxacin after 4 days. She seems very anxious and has difficulty falling asleep, we started her on Zyprexa 2.5 mg b.i.d. and clonazepam 0.5 mg as needed, which didn't seem to help her much. We started her on amitriptyline 10 mg HS to help with her sleep issues which might be a component of her cognitive decline, but she developed muscle twitches on her left cheek the next day. We held amitriptyline and started her on Seroquel 50 mg h.s. and continued clonazepam 0.5 mg as needed. She is still very anxious and does not seem to get much sleep. We spoke with the patient's daughter and she stated that she is no longer able to care for her mother and wishes for placement in a dementia care facility to support her cognitive and behavioral needs. She needs to follow up with a neurologist for her dementia as soon as possible and she needs to be monitored for her cognitive decline and behavioral status. Patient did not experience further complications throughout the entire hospital stay. Patient was seen and examined on the day of discharge. All labs, diagnostic workups, discharge plan discussed with the patient in detail during visit before discharge. All questions and concerns answered to the best of my professional knowledge. Imaging: Chest x-ray- 11/13/24 No evidence of pneumonia or other acute abnormality. Laboratory Tests Test 11/17/24 04:38 11/18/24 04:46 White Blood Count 9.7 X10'3 11.0 X10'3 Red Blood Count 3.80 X10'6 3.59 X10'6 Hemoglobin 12.0 g/dl 11.4 g/dl Hematocrit 36.2 % 34.1 % Mean Corpuscular Volume 95.2 FL 95.1 FL Mean Corpuscular Hemoglobin 31.6 PG 31.8 PG Mean Corpuscular Hemoglobin Concent 33.2 g/dL 33.5 g/dL Red Cell Distribution Width 15.1 % 15.3 % Platelet Count 323 X10'3 305 X10'3 Mean Platelet Volume 7.3 FL 7.6 FL Neutrophils (%) (Auto) 62.7 % 72.7 % Lymphocytes (%) (Auto) 23.3 % 16.6 % Monocytes (%) (Auto) 12.0 % 9.5 % Eosinophils (%) (Auto) 1.2 % 0.5 % Basophils (%) (Auto) 0.8 % 0.7 % Neutrophils # (Auto) 6.1 X10'3 8.0 X10'3 Lymphocytes # (Auto) 2.3 X10'3 1.8 X10'3 Monocytes # (Auto) 1.2 X10'3 1.1 X10'3 Eosinophils # (Auto) 0.1 X10'3 0.1 X10'3 Basophils # (Auto) 0.1 X10'3 0.1 X10'3 CBC Comment Sodium Level 143 MMOL/L 141 MMOL/L Potassium Level 4.5 MMOL/L 4.1 MMOL/L Chloride Level 109 MMOL/L 107 MMOL/L Carbon Dioxide Level 29.8 MMOL/L 27.7 MMOL/L Anion Gap 4 6 Blood Urea Nitrogen 12 MG/DL 16 MG/DL Creatinine 0.51 MG/DL 0.69 MG/DL Estimated GFR/1.73 m2 > 90 ML/MIN 81 ML/MIN BUN/Creatinine Ratio 23.5 23.2 Glucose Level 84 MG/DL 114 MG/DL Calcium Level 9.3 MG/DL 9.2 MG/DL Magnesium Level 2.1 MG/DL Total Bilirubin 0.5 MG/DL 0.4 MG/DL Aspartate Amino Transf (AST/SGOT) 10 U/L 8 U/L Alanine Aminotransferase (ALT/SGPT) 13 U/L 16 U/L Alkaline Phosphatase 94 IU/L 92 IU/L Total Protein 5.7 G/DL 5.6 G/DL Albumin 2.7 G/DL 2.6 G/DL Globulin 3.0 G/DL 3.0 G/DL Albumin/Globulin Ratio 0.9 0.9 Chemistry Comments Vital Signs Date Time Temp Pulse Resp B/P (MAP) Pulse Ox O2 Delivery O2 Flow Rate FiO2 11/18/24 09:33 18 94 Room Air 11/18/24 05:00 97.9 83 118/53 (74) 11/17/24 08:00 0.0 General examination on the day of discharge: General: Well alert, well oriented, slightly confused, not agitated, not in acute distress. HEENT: Conjunctive are pink, sclerae clear, no icterus, pupil is equal in both sides, reactive to light, no ear discharge, no pharyngeal erythema or an edema. Neck: Supple, no JVD, no lymphadenopathy and thyromegaly. Chest: Equal air entry on both lungs, no added sounds, no wheeze. Cardiovascular: S1-S2 regular sinus rhythm and, regular rate, no gallops, no rubs, no murmurs Abdomen: No visible peristalsis, Bowel sounds present on auscultation, soft, nontender, no guarding, no rigidity Extremities: No obvious deformities, no pitting edema bilaterally, capillary refill intact, peripheral pulsations are intact on both sides Central Nervous System: No focal neurological deficits, no motor or sensory weakness in all 4 extremities, could move all 4 extremities, 2+ deep tendon reflexes, negative Babinski. Musculoskeletal: No joint swelling, deformities, inflammations, and no scoliosis and back tenderness Skin: Warm and dry. Discharge medications: Prednisolone sodium phosphate eyedrops 1 drop daily Mental 1.8 mg honey cough drop/halls soothe 1.8 mg methol cough drop q.2h Seroquel 0.5 mg PO HS Clonazepam 0.5 mg p.o. p.r.n. Polyvinyl alcohol eyedrops p.r.n. Advise at discharge: Follow up with PCP in 1-2 weeks Follow up with a neurologist for anxiolytic and neurotropic agents for her dementia status, cognitive decline and sleep changes Maintain compliance with the neurotropic agents and monitor her cognitive decline and behavioral status. Go to ER or call 911 in case of any worsening of symptoms *Problems/Diagnosis: (1) History of recurrent UTIs (2) Dementia (3) Pharyngitis (4) UTI (urinary tract infection) (5) Metabolic encephalopathy Total Time Spent on D/C: > 30 Minutes Date of Service: Nov 18, 2024 Billing Provider: ANKUSH DUMONT MD Common Visit Codes: 01993-WDW/[id number] DISCH DAY >30min LYSSA ROBERT, RES Nov 18, 2024 10:50 ANKUSH DUMONT MD Nov 18, 2024 22:12
[2024-11-18] MEDS: magnesium hydroxide 30ml (MOM) UD suspension PO ONE (12:33)
[2024-11-18] MEDS: bisacodyl 10mg suppository rectal RC STA (12:33)
[2024-11-18 18:00] VITALS: BP 121/68; PULSE 125; RESP 16; TEMP 97.7; O2SAT 96
--- NOTE | 2024-11-18 19:17 | PROGRESS NOTE- Residence ---
Progress Note - Resident Providers to CC Resident Creating Document: LYSSA ROBERT RES ~ Antibiotic Timeout Antibiotic Ordered?: Yes Subjective Patient seen and examined bedside, she remains unchanged from her cognitive decline status by showing only anxiety and restless behavior. The muscle twitching on her left cheek has subsided. She was supposed to be discharged today and transferred to [facility] post acute, however the facility did not send transportation as planned, which was scheduled at 3:30 pm and the facility has not responded to the nurse's calls. As a result, the patient will need to remain here for today. Objective Vital Signs Date Time Temp Pulse Resp B/P (MAP) Pulse Ox O2 Delivery O2 Flow Rate FiO2 11/18/24 10:00 98.0 98 16 99/54 (69) 97 Room Air 11/17/24 08:00 0.0 Result Diagram: 11/18/2444511/18/24445 General: Well alert, well oriented, slightly confused, not agitated, not in acute distress. HEENT: Conjunctive are pink, sclerae clear, no icterus, pupil is equal in both sides, reactive to light, no ear discharge, no pharyngeal erythema or an edema. Neck: Supple, no JVD, no lymphadenopathy and thyromegaly. Chest: Equal air entry on both lungs, no added sounds, no wheeze. Cardiovascular: S1-S2 regular sinus rhythm and, regular rate, no gallops, no rubs, no murmurs Abdomen: No visible peristalsis, Bowel sounds present on auscultation, soft, nontender, no guarding, no rigidity Extremities: No obvious deformities, no pitting edema bilaterally, capillary refill intact, peripheral pulsations are intact on both sides Central Nervous System: No focal neurological deficits, no motor or sensory weakness in all 4 extremities, could move all 4 extremities, 2+ deep tendon reflexes, negative Babinski. Musculoskeletal: No joint swelling, deformities, inflammations, and no scoliosis and back tenderness Skin: Warm and dry. Assessment Assessment An 84-year-old female with past medical history of recurrent UTI and dementia since 20 years was brought to the ER by her daughter with complaints of increasing confusion and disorientation, with no symptoms of urinary tract infection. Her urinalysis is positive but urine cultures showed no growth. Her baseline cognitive status is unknown, making it difficult to evaluate her recent changes in cognition and behavioral status. We are currently awaiting for post acute care to respond about her transfer as initially planned for further management of her cognitive decline and behavioral status. Plan Plan # History of Recurrent UTI # Confusion due to Acute Metabolic encephalopathy vs dementia No symptoms of UTI, intermittent confusion, fearfulness, agitation. Patient does not meet the SIRS criteria Vitals: Blood pressure on arrival 168/84, pulse 87. Not a known case of hypertension. Urinalysis shows 5-10 WBCs, leukocyte esterase positive, moderate occult blood, no bacteria seen. WBC 9.9 creatinine 0.57 Plan: Urine culture sent Hydration with 50 mL/hour IV fluids Started antibiotic levofloxacin 750 mg IV daily to cover Pseudomonas Watch for QT prolongation. Ordered ammonia, TSH, lactic acid, ESR, procalcitonin. Fall precautions in place. 11/14/24 Possible UTI Possible metabolic encephalopathy WBC, Procalcitonin, lactic acid and ESR - normal Urine cultures show no growth SIRS criteria not met No electrolyte abnormalities Ammonia < 10 Her confusion might be a component of her declining cognitive status or acute metabolic encephalopathy Plan: Continue NS at 50 mL/hr Continue levofloxacin 750 mg IV daily Watch for QT prolongation Fall precautions in place 11/15/2024: Schedule p.o. olanzapine 2.5 mg b.i.d. -given one time dose of p.o. clonazepam 0.5 mg -we will consider more/long-acting anxiolytic for her anxiety from cognitive decline function -continue levofloxacin until blood and urine C&S results came out for clear 11/16/2024: Held IV levofloxacin as urine cultures showed no growth. Started on amitriptyline 10 mg at bedtime, as her confusion could be a component of improper sleep. Continue clonazepam 0.5 mg daily p.r.n. Held olanzapine 2.5 mg b.i.d. Held IV fluids, patient tolerating oral diet well. 11/17/2024: Held amitriptyline 10 mg in view of her muscle twitches in left cheek Started Seroquel 50 mg h.s. Continue clonazepam 0.5 mg p.r.n. 11/18/24: Continue Seroquel 50 mg h.s. and clonazepam 0.5 mg p.r.n. # Cough, sore throat most likely due to pharyngitis Throat does not look inflamed on examination, no follicles. Rapid strep test negative Chest x-ray shows no abnormality 11/15/2024: Menthol 1.8 mg q.2 hours PRN -throat culture final results showed normal oral jacob 11/18/24: Continue Menthol 1.8 mg q.2h p.r.n. # Declining Cognitive dysnfucntion from Dementia of unknown etiology Not on any medication follow up outpatient with a neurologist Code status: Full DVT prophylaxis: SCDs until fully ambulatory Pain management: Morphine Diet/nutrition: Regular diet Prognosis: Guarded Disposition: Continue medical management. We are monitoring her cognitive and behavioral status. We are currently waiting for response from [facility], where she was initially planned to transfer today, PT eval and DC plan. Resident MD attestation: The patient note has been reviewed and supervised by senior residents PGY-2/ PGY-3. Patient was seen, examined and discussed with attending physician Dr Colten Robert MD Internal Medicine resident, PGY-1 [facility] Date of Service: Nov 18, 2024 Billing Provider: ANKUSH DUMONT MD, PREETHI, RES Nov 18, 2024 19:17
[2024-11-18 20:00] VITALS: RESP 16; O2SAT 96
[2024-11-18 22:00] VITALS: BP 121/55; PULSE 90; RESP 24; TEMP 98.6; O2SAT 96
[2024-11-19 06:00] VITALS: BP 135/60; PULSE 81; RESP 20; TEMP 97.8; O2SAT 93
[2024-11-19 08:00] VITALS: RESP 20; O2SAT 93
--- NOTE | 2024-11-20 09:32 | PROGRESS NOTE- Residence ---
Progress Note - Resident Providers to CC Resident Creating Document: LYSSA ROBERT RES ~ Antibiotic Timeout Antibiotic Ordered?: Yes Subjective This is a progress note for yesterday-11/20/24. Patient was transferred to [facility] post acute care yesterday. Patient seen and examined bedside yesterday, she remained unchanged from her cognitive decline status by showing only anxiety and restless behavior. The muscle twitching on her left cheek has subsided. She was supposed to be discharged on 11/18/[address] [facility], however the facility did not send transportation as planned, which was scheduled at 3:30 pm and the facility did not respond to the nurse's calls. As a result, the patient was transferred on 11/19/24 Objective Vital Signs Date Time Temp Pulse Resp B/P (MAP) Pulse Ox O2 Delivery O2 Flow Rate FiO2 11/19/24 08:00 20 93 Room Air 11/19/24 06:00 97.8 81 135/60 (85) 11/17/24 08:00 0.0 Result Diagram: 11/18/2444511/18/246 General: Well alert, well oriented, slightly confused, not agitated, not in acute distress. HEENT: Conjunctive are pink, sclerae clear, no icterus, pupil is equal in both sides, reactive to light, no ear discharge, no pharyngeal erythema or an edema. Neck: Supple, no JVD, no lymphadenopathy and thyromegaly. Chest: Equal air entry on both lungs, no added sounds, no wheeze. Cardiovascular: S1-S2 regular sinus rhythm and, regular rate, no gallops, no rubs, no murmurs Abdomen: No visible peristalsis, Bowel sounds present on auscultation, soft, nontender, no guarding, no rigidity Extremities: No obvious deformities, no pitting edema bilaterally, capillary refill intact, peripheral pulsations are intact on both sides Central Nervous System: No focal neurological deficits, no motor or sensory weakness in all 4 extremities, could move all 4 extremities, 2+ deep tendon reflexes, negative Babinski. Musculoskeletal: No joint swelling, deformities, inflammations, and no scoliosis and back tenderness Skin: Warm and dry. Assessment Assessment An 84-year-old female with past medical history of recurrent UTI and dementia since 20 years was brought to the ER by her daughter with complaints of increasing confusion and disorientation, with no symptoms of urinary tract infection. Her urinalysis is positive but urine cultures showed no growth. Her baseline cognitive status is unknown, making it difficult to evaluate her recent changes in cognition and behavioral status. She was transferred to [facility] on 11/19/24 Plan Plan # History of Recurrent UTI # Confusion due to Acute Metabolic encephalopathy vs dementia No symptoms of UTI, intermittent confusion, fearfulness, agitation. Patient does not meet the SIRS criteria Vitals: Blood pressure on arrival 168/84, pulse 87. Not a known case of hypertension. Urinalysis shows 5-10 WBCs, leukocyte esterase positive, moderate occult blood, no bacteria seen. WBC 9.9 creatinine 0.57 Plan: Urine culture sent Hydration with 50 mL/hour IV fluids Started antibiotic levofloxacin 750 mg IV daily to cover Pseudomonas Watch for QT prolongation. Ordered ammonia, TSH, lactic acid, ESR, procalcitonin. Fall precautions in place. 11/14/24 Possible UTI Possible metabolic encephalopathy WBC, Procalcitonin, lactic acid and ESR - normal Urine cultures show no growth SIRS criteria not met No electrolyte abnormalities Ammonia < 10 Her confusion might be a component of her declining cognitive status or acute metabolic encephalopathy Plan: Continue NS at 50 mL/hr Continue levofloxacin 750 mg IV daily Watch for QT prolongation Fall precautions in place 11/15/2024: Schedule p.o. olanzapine 2.5 mg b.i.d. -given one time dose of p.o. clonazepam 0.5 mg -we will consider more/long-acting anxiolytic for her anxiety from cognitive decline function -continue levofloxacin until blood and urine C&S results came out for clear 11/16/2024: Held IV levofloxacin as urine cultures showed no growth. Started on amitriptyline 10 mg at bedtime, as her confusion could be a component of improper sleep. Continue clonazepam 0.5 mg daily p.r.n. Held olanzapine 2.5 mg b.i.d. Held IV fluids, patient tolerating oral diet well. 11/17/2024: Held amitriptyline 10 mg in view of her muscle twitches in left cheek Started Seroquel 50 mg h.s. Continue clonazepam 0.5 mg p.r.n. 11/18/24: Continue Seroquel 50 mg h.s. and clonazepam 0.5 mg p.r.n. 11/19/24: Continued above medication # Cough, sore throat most likely due to pharyngitis Throat does not look inflamed on examination, no follicles. Rapid strep test negative Chest x-ray shows no abnormality 11/15/2024: Menthol 1.8 mg q.2 hours PRN -throat culture final results showed normal oral jacob 11/18/24: Continue Menthol 1.8 mg q.2h p.r.n. # Declining Cognitive dysnfucntion from Dementia of unknown etiology Not on any medication follow up outpatient with a neurologist Code status: Full DVT prophylaxis: SCDs until fully ambulatory Pain management: Morphine Diet/nutrition: Regular diet Prognosis: Guarded Disposition: Continue medical management. We are monitoring her cognitive and behavioral status. Patient scheduled for transfer to [facility] acute care today Please refer to discharge summary on 11/18/24 and addendum in discharge summary on 11/19/24 Resident attestation: The patient note has been reviewed and supervised by senior residents PGY-2/ PGY-3. Patient was seen, examined and discussed with attending physician Dr Colten Robert MD Internal Medicine resident, PGY-1 Date of Service: Nov 19, 2024 Billing Provider: ANKUSH DUMONT MD Common Visit Codes: [id number] INP/OBS CARE(MOD) LYSSA ROBERT, RES Nov 20, 2024 09:32 ANKUSH DUMONT MD Nov 21, 2024 07:38
== END 2024-11-19 11:17 | DRG 689 ==
LOC: ER 16:23 → ED HOLD 19:52 → EDBEDREQTM 19:58 → EDBEDREQ 19:58 → SUR 3N 11-14 07:10
PROVIDERS: ADMIT Internal Medicine; ATTEND Internal Medicine
DX: N39.0 Urinary tract infection, site not specified (principal); G93.41 Metabolic encephalopathy; J02.9 Acute pharyngitis, unspecified; F03.90 Unspecified dementia, unspecified severity, without behavioral disturbance, psychotic disturbance, mood disturbance, and anxiety; G47.00 Insomnia, unspecified; Z88.5 Allergy status to narcotic agent; Z85.42 Personal history of malignant neoplasm of other parts of uterus; Z92.21 Personal history of antineoplastic chemotherapy
CPT/HCPCS: 36415; 71046; 80053; 80061; 81001; 82140; 83605; 83735; 84145; 84443; 85025; 85651; 86140; 87040; 87081; 87088; 87880; 92508; 97116; 97161; 99285; G0378; J0696; J1956; J2060; J2270; J7030

== ENCOUNTER 2025-02-17 10:31 | Outpatient (CLI) | payer MEDICARE, MEDICAID ==
[~2025-02-17 10:31] MED LIST changes: -FAMO40TA58 PO; -MELA3TAB39 PO
--- NOTE | 2025-02-17 12:01 | RADIOLOGY REPORT ---
CLINICAL INFORMATION: CALCULUS OF KIDNEY. TECHNIQUE: Axial CT images of the abdomen and pelvis were obtained without IV contrast. Coronal and sagittal reformatted images were obtained, reviewed, and stored. Evaluation of the parenchymal organs is limited without IV contrast. Evaluation of the bowel and mesentery is limited without oral contrast. All CT scans at this medical facility are performed using dose modulation techniques as appropriate to a performed exam including the following: Automated exposure control was utilized; adjustment of the MA and/or KV according to patient size; and use of iterative reconstruction technique. CTDIvol = 13.02 mGy DLP = 592.14 mGy-cm COMPARISON: None FINDINGS: Motion artifact limits evaluation. Lung bases: Atelectasis in the lung bases. Liver: Small subcentimeter low-attenuation lesions in the liver, most likely cysts, but too small to characterize. Biliary: There is layering density in the gallbladder, likely layering gallstones and/or sludge. No biliary ductal dilatation. Spleen: Unremarkable. Pancreas: [id number] atrophy. Adrenal glands: Thickened adrenal glands bilaterally with left adrenal nodule measuring up to 1 cm, with indeterminate density. Kidneys: Staghorn calculus in the mid to upper pole of the right kidney extending into the right renal pelvis measuring up to 4 cm in greatest dimension. 3 mm nonobstructing calculus at the midpole of the left kidney. No hydronephrosis or obstructing calculi. Bilateral renal cysts are seen, with the largest at the superior pole of the left kidney measuring up to 4.3 cm. Aorta/Vascular: Dense arterial calcification. No abdominal aortic aneurysm. Lymph nodes: No mass or lymphadenopathy. Bowel/mesentery: No small bowel obstruction. No free air or free fluid. Appendix is not visualized. Scattered colonic diverticula without adjacent inflammatory changes to suggest diverticulitis. Moderate stool in the colon. Pelvic organs: Uterus is surgically absent. Bladder: Unremarkable. No mass. Abdominal wall: Mild anasarca. Bones: No acute fracture or suspicious intraosseous lesion. IMPRESSION: 1. Motion limited study. 2. Bilateral nonobstructing renal calculi, including large staghorn calculus in the right kidney. 3. Thickening of both adrenal glands with left adrenal nodule measuring up to 1 cm. Per ACR white paper on incidentally detected adrenal masses, 4 masses measuring between 1-2 cm without prior imaging, and with no known history of cancer, etiology is most likely benign. Consider 12 month follow-up CT adrenal mass protocol. 4. Scattered colonic diverticula without adjacent inflammatory changes to suggest diverticulitis. 5. Additional nonacute findings as described above.
== END 2025-02-17 23:59 | disposition home or self-care (01) ==
LOC: RAD 10:31
PROVIDERS: ATTEND Nurse Practitioner
DX: N20.0 Calculus of kidney (principal); G31.9 Degenerative disease of nervous system, unspecified; J98.11 Atelectasis; K57.30 Diverticulosis of large intestine without perforation or abscess without bleeding; E27.8 Other specified disorders of adrenal gland
CPT/HCPCS: 74176